=== PATIENT | male | born 1990 | race Caucasian/White ===

== ENCOUNTER 2019-07-06 18:35 | Emergency (ER) | payer OTHER ==
[~2019-07-06] VITALS: Ht 170.2 cm; Wt 73.0 kg
[2019-07-06] MEDS ORDERED: IBUPROFEN 600 MG TABLET ONE (18:48)
[2019-07-06 19:00] VITALS: BP 117/75
[2019-07-06] MEDS ORDERED: PLEASE ENTER ALLERGIES MC SCH (19:00)
[2019-07-06] MEDS ORDERED: PLEASE ENTER HEIGHT AND WEIGHT MC SCH (19:00)
[2019-07-06] MEDS ORDERED: IBUPROFEN 600 MG TABLET PO ONE (19:00)
--- NOTE | 2019-07-06 19:05 | NUR ---
PT REPORT FROM MANA MESSINA. PT CARE ASSUMED. PT SITTING ON CHAIR IN ED ROOM. RESP EVEN & UNLABORED, SPEECH CLEAR.
== END 2019-07-06 20:12 | disposition home or self-care (01) ==
LOC: ED 20:06
DX: S00.83XA Contusion of other part of head, initial encounter (principal); Y04.0XXA Assault by unarmed brawl or fight, initial encounter; Y93.89 Activity, other specified; Y92.410 Unspecified street and highway as the place of occurrence of the external cause; Y92.69 Other specified industrial and construction area as the place of occurrence of the external cause; Y99.0 Civilian activity done for income or pay
CPT/HCPCS: 70486; 99284

== ENCOUNTER 2020-05-22 13:54 | Emergency (ER) | payer OTHER ==
[~2020-05-22] VITALS: Ht 167.6 cm; Wt 78.0 kg
[2020-05-22 14:04] VITALS: BP 119/78
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
[2020-05-22] MEDS ORDERED: ACETAMINOPHEN 500 MG TABLET PO ONE (15:30)
[2020-05-22] MEDS ORDERED: ACETAMINOPHEN 325 MG TABLET ONE (15:40)
== END 2020-05-22 16:06 | disposition home or self-care (01) ==
LOC: ED 14:27
DX: S00.11XA Contusion of right eyelid and periocular area, initial encounter (principal); S00.83XA Contusion of other part of head, initial encounter; S00.511A Abrasion of lip, initial encounter; S09.90XA Unspecified injury of head, initial encounter; Y04.8XXA Assault by other bodily force, initial encounter; Y93.89 Activity, other specified; Y92.69 Other specified industrial and construction area as the place of occurrence of the external cause; Y99.8 Other external cause status
CPT/HCPCS: 70450; 70486; 99285